=== PATIENT | female | born 1930 | race Asian ===

== ENCOUNTER → 2017-08-07 | Outpatient (CLI) | payer MEDICARE, MEDICAID | LOC: CFH 14:19 | PROVIDERS: ATTEND Genetic Counselor, MS | DX: Z13.820 Encounter for screening for osteoporosis (principal); M81.0 Age-related osteoporosis without current pathological fracture | CPT/HCPCS: 77080 ==

== ENCOUNTER 2018-11-23 17:20 | Emergency (ER) | payer MEDICARE, MEDICAID ==
[~2018-11-23] VITALS: Ht 149.9 cm; Wt 60.0 kg
[2018-11-23] MEDS ORDERED: Metoprolol ER PO (17:53)
[2018-11-23] MEDS ORDERED: BENZ-17 PO (17:53)
[2018-11-23 18:10] LABS: BASOPHILS # (AUTO) 0.04 x10^3/uL (0-0.1); BASOPHILS % (AUTO) 1 % (0-1); EOSINOPHILS # (AUTO) 0.06 x10^3/uL (0-0.4); EOSINOPHILS % (AUTO) 1 % (1-7); LYMPHOCYTES # (AUTO) 3.13 x10^3/uL (1-3.4); LYMPHOCYTES % (AUTO) 44 % (22-44); MD NO; MEAN CORPUSCULAR HEMOGLOBIN 34.7 pg (27.0-34.8); MEAN CORPUSCULAR HGB CONC 33.1 g/dL (32.4-35.8); MEAN CORPUSCULAR VOLUME 104.6 fL (80-100); MEAN PLATELET VOLUME 6.1 fL (7.4-10.4); MONOCYTES # (AUTO) 0.69 x10^3/uL (0.2-0.8); MONOCYTES % (AUTO) 10 % (2-9); NEUTROPHILS # (AUTO) 3.22 x10^3/uL (1.8-6.8); NEUTROPHILS % (AUTO) 45 % (42-75); PLATELET COUNT 312 x10^3/uL (130-400); RED BLOOD COUNT 3.94 x10^6/uL (3.82-5.3); RED CELL DISTRIBUTION WIDTH 12.5 % (9.6-15.2)
[2018-11-23 18:17] LABS: ALBUMIN 3.7 g/dL (3.4-5.0); ANION GAP 8 mmol/L (5-15); CALCIUM 8.8 mg/dL (8.5-10.1); CHLORIDE 99 mmol/L (98-107)
[2018-11-23 18:20] LABS: TROPONIN I < 0.015 ng/mL (0.000-0.045)
--- NOTE | 2018-11-23 18:54 | NUR ---
Provided report to ELLIOTT Ritchie. All questions answered. ELLIOTT Ritchie assuming care of pt at this time.
--- NOTE | 2018-11-23 18:55 | NUR ---
received report from ELLIOTT Currie. awaiting plan of care.
--- NOTE | 2018-11-23 19:15 | NUR ---
re-evaluation done. patient discharged with prescriptions and instruction. verbalized understanding.
[2018-11-23 19:21] VITALS: BP 162/76
== END 2018-11-23 19:24 | disposition home or self-care (01) ==
LOC: ED 19:14
DX: J20.9 Acute bronchitis, unspecified (principal); I10 Essential (primary) hypertension; R07.2 Precordial pain
CPT/HCPCS: 36415; 71045; 80048; 82040; 84484; 85025; 93005; 99284